=== PATIENT | female | born 1955 | race Caucasian/White ===

== ENCOUNTER 2017-05-17 17:23 | Emergency (ER) | payer OTHER ==
[~2017-05-17] VITALS: Ht 157.5 cm; Wt 84.4 kg
[~2017-05-17 17:23] MED LIST: ATARAX50 MG; NEURONTIN600 MG; TOPROL XL25 M1; ZOCOR20 MG
[2017-05-17] MEDS ORDERED: ARICEPT5 MG (17:50)
[2017-05-17] MEDS ORDERED: PROTONIX20 MG (17:51)
[2017-05-17] MEDS ORDERED: NABUMETONE750 MG (17:51)
== END 2017-05-17 20:57 | disposition home or self-care (01) ==
LOC: ER 17:23
DX: G51.0 Bell's palsy (principal)

== ENCOUNTER 2017-07-03 11:32 | Emergency (ER) | payer OTHER ==
[~2017-07-03] VITALS: Ht 157.5 cm; Wt 85.7 kg
[~2017-07-03 11:32] MED LIST changes: +ARICEPT5 MG; +NABUMETONE750 MG; +PROTONIX20 MG
== END 2017-07-03 14:25 | disposition home or self-care (01) ==
LOC: ER 11:32
DX: K52.89 Other specified noninfective gastroenteritis and colitis (principal)